=== PATIENT | female | born 1970 | race Two or more races ===

== ENCOUNTER → 2020-03-04 09:33 | Outpatient (BNVA) | payer OTHER, SELFPAY | PROVIDERS: PCP Internal Medicine; Referring Provider Internal Medicine; Visit Provider Physician Assistant | DX: E66.9 Obesity, unspecified (principal); Z68.33 Body mass index [BMI] 33.0-33.9, adult; K90.49 Malabsorption due to intolerance, not elsewhere classified; Z98.84 Bariatric surgery status | CPT/HCPCS: 99214 ==

== ENCOUNTER → 2020-04-15 08:01 | Outpatient (BNVA) | payer OTHER, SELFPAY | PROVIDERS: Visit Provider Dietitian, Registered | DX: Z76.89 Persons encountering health services in other specified circumstances (principal) ==

== ENCOUNTER → 2020-05-13 08:07 | Outpatient (BNVA) | payer OTHER, SELFPAY | PROVIDERS: Visit Provider Dietitian, Registered | DX: Z76.89 Persons encountering health services in other specified circumstances (principal) ==

== ENCOUNTER → 2020-05-19 09:14 | Outpatient (BNVA) | payer OTHER, SELFPAY | PROVIDERS: Visit Provider Physician Assistant | DX: Z76.89 Persons encountering health services in other specified circumstances (principal) ==

== ENCOUNTER 2020-05-20 10:36 | Outpatient (REF) | payer OTHER, SELFPAY ==
[2020-05-27 12:57] LABS: Vitamin A 32 mcg/dL (38-98)
== END 2020-05-20 10:37 | disposition home or self-care (01) ==
LOC: HO.LAB 10:36
PROVIDERS: PCP Internal Medicine; Visit Provider Physician Assistant
DX: K90.49 Malabsorption due to intolerance, not elsewhere classified (principal); Z98.84 Bariatric surgery status
CPT/HCPCS: 84590

== ENCOUNTER 2020-06-10 09:02 | Outpatient (REF) | payer OTHER, SELFPAY ==
--- NOTE | 2020-06-10 09:05 | FL_ITS ---
EXAMINATION: XR GI SERIES CLINICAL INFORMATION: Bariatric surgery status COMPARISON: None TECHNIQUE: Upper GI was performed using thin and thick barium and effervescent granules. FINDINGS: Esophageal motility is normal. There are postoperative changes from a gastric sleeve. No mass ulcer or stricture is seen. There is significant gastroesophageal reflux. There is a small sliding hiatal hernia. The visualized small bowel is normal. FLUOROSCOPY TIME: 1.7 minutes DOSE AREA PRODUCT: 22 Gy-cm2 (microgray-meter squared) 43 images FL/FL upper GI series IMPRESSION: Postoperative change following gastric sleeve. Significant gastroesophageal reflux. Small sliding hiatal hernia.
== END 2020-06-10 09:03 | disposition home or self-care (01) ==
LOC: HO.XRAY 09:02
PROVIDERS: Visit Provider Surgery
DX: K21.9 Gastro-esophageal reflux disease without esophagitis (principal); Z98.84 Bariatric surgery status
CPT/HCPCS: 74240

== ENCOUNTER → 2020-06-16 14:18 | Outpatient (BNVA) | payer OTHER, SELFPAY | PROVIDERS: PCP Internal Medicine; Visit Provider Physician Assistant | DX: E66.9 Obesity, unspecified (principal); K90.49 Malabsorption due to intolerance, not elsewhere classified; Z98.84 Bariatric surgery status | CPT/HCPCS: 99212 ==

== ENCOUNTER → 2020-06-17 08:52 | Outpatient (BNVA) | payer OTHER, SELFPAY | PROVIDERS: PCP Internal Medicine; Visit Provider Dietitian, Registered | DX: Z98.84 Bariatric surgery status (principal); K90.49 Malabsorption due to intolerance, not elsewhere classified; E66.9 Obesity, unspecified; E66.01 Morbid (severe) obesity due to excess calories ==

== ENCOUNTER 2020-07-29 10:12 | Outpatient (REF) | payer OTHER, SELFPAY ==
[2020-07-29 13:04] LABS: MANUAL DIFF FLAG NO
[2020-07-29 13:17] LABS: Eosinophils Absolute Auto 0.1 X10*3/uL (0.0-0.4); Eosinophils Percent Auto 3.8 % (0-4); Hematocrit 43.3 % (37-47); Hemoglobin 14.1 g/dl (12.0-16.0); Lymphocytes Absolute Auto 1.4 X10*3/uL (1.2-4.9); Lymphocytes Percent Auto 46.7 % (20-40); Mean Corpuscular HGB Conc 32.6 g/dl (31.0-35.0); Mean Corpuscular Hemoglobin 31.1 pg (27.0-33.0); Mean Corpuscular Volume 95.4 fL (80-98); Mean Platelet Volume 10.4 fL (9.4-12.3); Monocytes Absolute Auto 0.3 X10*3/uL (0.1-1.2); Monocytes Percent Auto 9.3 % (2-11); Neutrophils Absolute Auto 1.1 X10*3/uL (2.0-8.3); Neutrophils Percent Auto 39.2 % (45-73); Platelet Count 211 X10*3/uL (160-400); Red Blood Count 4.54 X10*6/uL (4.20-5.50); Red Cell Distribution Width 13.8 % (11.0-16.0); White Blood Count 2.9 X10*3/uL (4.8-10.8)
[2020-07-29 14:16] LABS: Estimated Average Glucose 103 mg/dL; Hemoglobin A1c % 5.2 %
[2020-07-29 14:27] LABS: Vitamin B12 1403 pg/mL (200-900)
[2020-07-29 14:41] LABS: Ferritin 8 ng/mL (10-250); TSH reflex Free T4 1.36 uIU/mL (0.32-4.0); Vitamin D 25-OH Total 43.1 ng/mL (>30)
[2020-07-29 14:43] LABS: Alanine Aminotransferase 20 U/L (0-31); Albumin Level 4.3 g/dL (3.5-5.0); Alkaline Phosphatase 54 U/L (39-117); Anion Gap 12 (12-20); Aspartate Amino Transferase 21 U/L (5-31); Bilirubin Total 0.5 mg/dL (0.0-1.0); Blood Urea Nitrogen 12 mg/dL (9-16); Calcium 9.5 mg/dL (8.4-10.2); Carbon Dioxide 31 mmol/L (22-29); Chloride 103 mmol/L (96-108); Cholesterol 205 mg/dL; Estimated Glomerular Filt Rate > 60; Glucose Fasting 81 mg/dL (60-99); HDL Cholesterol 90 mg/dL; Iron 101 mcg/dL (30-160); LDL Cholesterol Calculated 104 mg/dl; Percent Iron Saturation 26 % (15-50); Potassium 4.2 mmol/L (3.3-5.1); Sodium 142 mmol/L (135-145); Total Iron Binding Capacity 392 mcg/dL (228-428); Total Protein 7.6 g/dL (6.5-8.0); Triglycerides 57 mg/dL; Unsaturated Iron Binding 291 ug/dL
[2020-07-30 15:46] LABS: Calcium (PTHI) 9.6 mg/dL (8.6-10.2); PTHI 50 pg/mL (14-64)
[2020-07-31 05:17] LABS: Insulin Level Total 4.2 uIU/mL
[2020-08-01 00:47] LABS: Zinc 80 mcg/dL (60-130)
[2020-08-01 11:56] LABS: Vitamin B1 18 nmol/L (8-30)
[2020-08-04 03:32] LABS: Vitamin A 36 mcg/dL (38-98)
== END 2020-07-29 10:13 | disposition home or self-care (01) ==
LOC: HO.LAB 10:12
PROVIDERS: Absent Provider Physician Assistant; PCP Internal Medicine; Visit Provider Dietitian, Registered
DX: E66.01 Morbid (severe) obesity due to excess calories (principal); K90.49 Malabsorption due to intolerance, not elsewhere classified; Z98.84 Bariatric surgery status
CPT/HCPCS: 36415; 80053; 80061; 82306; 82607; 82728; 82746; 83036; 83525; 83540; 83970; 84425; 84443; 84590; 84630; 85025; 86140

== ENCOUNTER → 2020-10-03 14:20 | Outpatient (BNVA) | payer OTHER, SELFPAY | PROVIDERS: PCP Internal Medicine; Visit Provider Physician Assistant | DX: E66.9 Obesity, unspecified (principal); K90.49 Malabsorption due to intolerance, not elsewhere classified; Z98.84 Bariatric surgery status | CPT/HCPCS: 99212 ==

== ENCOUNTER → 2020-11-27 12:05 | Outpatient (BNVA) | payer OTHER, SELFPAY | PROVIDERS: PCP Internal Medicine; Visit Provider Physician Assistant ==

== ENCOUNTER → 2021-01-08 08:09 | Outpatient (BNVA) | payer OTHER, SELFPAY | PROVIDERS: PCP Internal Medicine; Visit Provider Dietitian, Registered ==

== ENCOUNTER → 2021-02-25 13:39 | Outpatient (BNVA) | payer OTHER, SELFPAY | PROVIDERS: PCP Internal Medicine; Visit Provider Physician Assistant Surgical | DX: E66.9 Obesity, unspecified (principal); Z98.84 Bariatric surgery status | CPT/HCPCS: 99212 ==

== ENCOUNTER 2021-04-01 13:56 | Outpatient (REF) | payer OTHER, SELFPAY ==
[2021-04-01 15:21] LABS: MANUAL DIFF FLAG NO
[2021-04-01 15:42] LABS: Basophils Percent Auto 0.2 % (0-2); Eosinophils Percent Auto 0.6 % (0-4); Hematocrit 38.8 % (37.0-47.0); Hemoglobin 12.8 g/dl (12.0-16.0); Imm Gran Abs Auto 0.01 X10*3/uL (0.00-0.03); Imm Gran Pct Auto 0.2 % (0.0-0.4); Lymphocytes Absolute Auto 1.9 X10*3/uL (1.2-4.9); Mean Corpuscular Hemoglobin 31.1 pg (27.0-33.0); Mean Corpuscular Volume 94.4 fL (80.0-98.0); Mean Platelet Volume 9.6 fL (9.4-12.3); Monocytes Absolute Auto 0.4 X10*3/uL (0.1-1.2); Monocytes Percent Auto 7.4 % (2-11); Neutrophils Absolute Auto 3.1 x10*3/uL (2.0-8.3); Neutrophils Percent Auto 57.6 % (45-73); Platelet Count 260 X10*3/uL (160-400); Red Blood Count 4.11 X10*6/uL (4.20-5.50); Red Cell Distribution Width 13.5 % (11.0-16.0); White Blood Count 5.4 X10*3/uL (4.8-10.8)
[2021-04-01 15:53] LABS: Estimated Average Glucose 100 mg/dL; Hemoglobin A1c % 5.1 %
[2021-04-01 16:11] LABS: Anion Gap 13 (12-20); Blood Urea Nitrogen 18 mg/dL (9-16); C Reactive Protein 0.23 mg/dL (< or = 0.50); Calcium 9.2 mg/dL (8.4-10.2); Carbon Dioxide 28 mmol/L (22-29); Chloride 104 mmol/L (96-108); Cholesterol 190 mg/dL; Estimated Glomerular Filt Rate > 60; Glucose Random 89 mg/dL (60-115); HDL Cholesterol 74 mg/dL; Iron 97 mcg/dL (30-160); LDL Cholesterol Calculated 103 mg/dl; Percent Iron Saturation 26 % (15-50); Potassium 4.1 mmol/L (3.3-5.1); Sodium 141 mmol/L (135-145); Total Iron Binding Capacity 372 mcg/dL (228-428); Triglycerides 67 mg/dL; Unsaturated Iron Binding 275 ug/dL
[2021-04-01 16:32] LABS: Ferritin 10 ng/mL (10-250); TSH reflex Free T4 2.73 uIU/mL (0.32-4.0); Vitamin D 25-OH Total 35.3 ng/mL (>30)
[2021-04-01 16:42] LABS: Folate 15.6 ng/mL (> or = 4.0); Vitamin B12 1046 pg/mL (200-900)
[2021-04-02 15:41] LABS: Calcium (PTHI) 9.2 mg/dL (8.6-10.2); PTHI 80 pg/mL (14-64)
[2021-04-04 14:05] LABS: Zinc 69 mcg/dL (60-130)
[2021-04-05 12:01] LABS: Vitamin B1 16 nmol/L (8-30)
[2021-04-06 09:46] LABS: Vitamin A 42 mcg/dL (38-98)
== END 2021-04-01 13:57 | disposition home or self-care (01) ==
LOC: HO.LAB 13:56
PROVIDERS: PCP Internal Medicine; Visit Provider Physician Assistant Surgical
DX: E66.9 Obesity, unspecified (principal); Z68.35 Body mass index [BMI] 35.0-35.9, adult; K21.9 Gastro-esophageal reflux disease without esophagitis; Z98.84 Bariatric surgery status
CPT/HCPCS: 36415; 80048; 80061; 82306; 82607; 82728; 82746; 83036; 83540; 83970; 84425; 84443; 84590; 84630; 85025; 86140; 99212

== ENCOUNTER 2021-06-16 08:06 | Outpatient (REF) | payer OTHER, SELFPAY ==
--- NOTE | ~2021-06-16 | FL_ITS ---
EXAMINATION: XR FLUOROSCOPY UPPER GI WITH AIR CLINICAL INFORMATION: Preop. Obesity. COMPARISON: Previous upper GI exam 06/10/2020. TECHNIQUE: Routine upper GI air-contrast study was performed. FINDINGS: Following oral administration of thick barium and effervescent granules, there is normal propagation of bolus from the oral cavity through the pharynx and esophagus and into the stomach without obstruction, narrowing or stricture. On placing patient supine and prone lying, there is evidence of gastric sleeve surgery with a small stomach. There is normal emptying of barium from the stomach into the duodenal bulb and the sweep without any evidence of obstruction, narrowing or stricture. There is moderate gastroesophageal reflux with mild sliding hiatal hernia noted. There is a posterior flopped fundus, similar to previous study. FLUOROSCOPY TIME: 2.3 minutes. DOSE AREA PRODUCT: 34.308 uGy-m2 (microgray-meter squared). IMAGES: 49. FL/FL upper GI w air IMPRESSION: Post gastric sleeve surgical changes are present. There is moderate gastroesophageal reflux with sliding hiatal hernia similar to previous study.
== END 2021-06-16 08:07 | disposition home or self-care (01) ==
LOC: HO.XRAY 08:06
PROVIDERS: Visit Provider Physician Assistant Surgical
DX: K21.9 Gastro-esophageal reflux disease without esophagitis (principal); E66.9 Obesity, unspecified
CPT/HCPCS: 74246

== ENCOUNTER → 2021-06-23 07:55 | Outpatient (BNVA) | payer OTHER, SELFPAY | PROVIDERS: PCP Internal Medicine; Referring Provider Surgery; Visit Provider Physician Assistant Surgical | DX: E66.9 Obesity, unspecified (principal); Z68.35 Body mass index [BMI] 35.0-35.9, adult | CPT/HCPCS: 99212 ==

== ENCOUNTER 2021-11-27 10:53 | Outpatient (REF) | payer OTHER, SELFPAY ==
[2021-11-27 11:13] LABS: MANUAL DIFF FLAG NO
[2021-11-27 11:18] LABS: Basophils Percent Auto 0.3 % (0-2); Eosinophils Absolute Auto 0.2 X10*3/uL (0.0-0.4); Eosinophils Percent Auto 4.9 % (0-4); Hematocrit 34.6 % (37.0-47.0); Hemoglobin 11.3 g/dl (12.0-16.0); Imm Gran Abs Auto 0.01 X10*3/uL (0.00-0.03); Imm Gran Pct Auto 0.3 % (0.0-0.4); Lymphocytes Absolute Auto 1.8 X10*3/uL (1.2-4.9); Lymphocytes Percent Auto 45.6 % (20-40); Mean Corpuscular HGB Conc 32.7 g/dl (31.0-35.0); Mean Corpuscular Hemoglobin 30.7 pg (27.0-33.0); Mean Platelet Volume 9.7 fL (9.4-12.3); Monocytes Absolute Auto 0.3 X10*3/uL (0.1-1.2); Monocytes Percent Auto 8.5 % (2-11); Neutrophils Absolute Auto 1.6 x10*3/uL (2.0-8.3); Neutrophils Percent Auto 40.4 % (45-73); Platelet Count 161 X10*3/uL (160-400); Red Blood Count 3.68 X10*6/uL (4.20-5.50); White Blood Count 3.9 X10*3/uL (4.8-10.8)
[2021-11-27 11:27] LABS: Estimated Average Glucose 103 mg/dL; Hemoglobin A1c % 5.2 %
[2021-11-27 11:57] LABS: Anion Gap 9 (12-20); Blood Urea Nitrogen 13 mg/dL (9-16); C Reactive Protein 0.76 mg/dL (< or = 0.50); Calcium 8.7 mg/dL (8.4-10.2); Carbon Dioxide 28 mmol/L (22-29); Chloride 106 mmol/L (96-108); Cholesterol 200 mg/dL; Estimated Glomerular Filt Rate > 60; Glucose Random 89 mg/dL (60-115); HDL Cholesterol 64 mg/dL; Iron 105 mcg/dL (30-160); LDL Cholesterol Calculated 119 mg/dl; Percent Iron Saturation 37 % (15-50); Potassium 3.8 mmol/L (3.3-5.1); Sodium 139 mmol/L (135-145); Total Iron Binding Capacity 286 mcg/dL (228-428); Triglycerides 88 mg/dL; Unsaturated Iron Binding 181 ug/dL
[2021-11-27 12:11] LABS: Ferritin 19 ng/mL (10-250); TSH reflex Free T4 2.33 uIU/mL (0.32-4.0); Vitamin D 25-OH Total 29.3 ng/mL (>30)
[2021-11-27 12:20] LABS: Folate 8.4 ng/mL (> or = 4.0); Vitamin B12 338 pg/mL (200-900)
[2021-11-27 12:42] LABS: Insulin 7 uU/mL (2-29)
[2021-12-01 12:11] LABS: Calcium (PTHI) 8.9 mg/dL (8.6-10.4); PTHI 71 pg/mL (16-77)
[2021-12-01 16:42] LABS: Zinc 60 mcg/dL (60-130)
[2021-12-02 21:22] LABS: Vitamin A 37 mcg/dL (38-98)
[2021-12-04 16:12] LABS: Vitamin B1 14 nmol/L (8-30)
== END 2021-11-27 10:54 | disposition home or self-care (01) ==
LOC: HO.LAB 10:53
PROVIDERS: Visit Provider Physician Assistant Surgical
DX: E66.9 Obesity, unspecified (principal); K90.49 Malabsorption due to intolerance, not elsewhere classified; Z98.84 Bariatric surgery status
CPT/HCPCS: 36415; 80048; 80061; 82306; 82607; 82728; 82746; 83036; 83525; 83540; 83970; 84425; 84443; 84590; 84630; 85025; 86140

== ENCOUNTER → 2021-12-10 10:11 | Outpatient (BNVA) | payer OTHER, SELFPAY | PROVIDERS: PCP Internal Medicine; Visit Provider Physician Assistant Surgical | DX: E66.9 Obesity, unspecified (principal); Z98.84 Bariatric surgery status; Z68.35 Body mass index [BMI] 35.0-35.9, adult | CPT/HCPCS: 99212 ==

== ENCOUNTER → 2022-03-17 11:01 | Outpatient (BNVA) | payer OTHER, SELFPAY | PROVIDERS: PCP Internal Medicine; Visit Provider Physician Assistant Surgical | DX: E66.9 Obesity, unspecified (principal); Z68.34 Body mass index [BMI] 34.0-34.9, adult; L98.7 Excessive and redundant skin and subcutaneous tissue; Z98.84 Bariatric surgery status | CPT/HCPCS: 99212 ==

== ENCOUNTER 2022-05-25 13:19 | Outpatient (REF) | payer OTHER, SELFPAY ==
[2022-05-25 14:24] LABS: MANUAL DIFF FLAG NO
[2022-05-25 15:05] LABS: Basophils Percent Auto 0.5 % (0-2); Eosinophils Percent Auto 0.7 % (0-4); Hematocrit 37.1 % (37.0-47.0); Imm Gran Abs Auto 0.03 X10*3/uL (0.00-0.03); Imm Gran Pct Auto 0.5 % (0.0-0.4); Lymphocytes Percent Auto 32.5 % (20-40); Mean Corpuscular HGB Conc 32.3 g/dl (31.0-35.0); Mean Corpuscular Hemoglobin 30.2 pg (27.0-33.0); Mean Corpuscular Volume 93.5 fL (80.0-98.0); Monocytes Absolute Auto 0.6 X10*3/uL (0.1-1.2); Neutrophils Absolute Auto 3.5 x10*3/uL (2.0-8.3); Neutrophils Percent Auto 56.8 % (45-73); Platelet Count 254 X10*3/uL (160-400); Red Blood Count 3.97 X10*6/uL (4.20-5.50); White Blood Count 6.1 X10*3/uL (4.8-10.8)
[2022-05-25 15:50] LABS: Alanine Aminotransferase 13 U/L (0-31); Alkaline Phosphatase 63 U/L (39-117); Anion Gap 8 (12-20); Aspartate Amino Transferase 14 U/L (5-31); Bilirubin Total 0.6 mg/dL (0.0-1.0); Blood Urea Nitrogen 12 mg/dL (9-16); Calcium 9.1 mg/dL (8.4-10.2); Carbon Dioxide 32 mmol/L (22-29); Chloride 103 mmol/L (96-108); Estimated Glomerular Filt Rate > 60; Glucose Random 72 mg/dL (60-115); Iron 139 mcg/dL (30-160); Magnesium 2.2 mg/dL (1.6-2.6); Percent Iron Saturation 40 % (15-50); Phosphorus 3.7 mg/dL (2.7-4.5); Potassium 3.9 mmol/L (3.3-5.1); Sodium 139 mmol/L (135-145); Total Iron Binding Capacity 344 mcg/dL (228-428); Unsaturated Iron Binding 205 ug/dL
[2022-05-25 16:06] LABS: Ferritin 7 ng/mL (10-250); TSH reflex Free T4 2.97 uIU/mL (0.32-4.0); Vitamin D 25-OH Total 27.3 ng/mL (>30)
[2022-05-25 16:24] LABS: Folate 11.9 ng/mL (> or = 4.0); Vitamin B12 359 pg/mL (200-900)
[2022-05-28 05:23] LABS: Zinc 76 mcg/dL (60-130)
[2022-05-30 10:13] LABS: Vitamin A 40 mcg/dL (38-98); Vitamin B1 17 nmol/L (8-30)
== END 2022-05-25 13:20 | disposition home or self-care (01) ==
LOC: HO.LAB 13:19
PROVIDERS: PCP Internal Medicine; Visit Provider Physician Assistant Surgical
DX: E66.9 Obesity, unspecified (principal); L98.7 Excessive and redundant skin and subcutaneous tissue; Z98.84 Bariatric surgery status
CPT/HCPCS: 36415; 80053; 82306; 82607; 82728; 82746; 83540; 83735; 84100; 84425; 84443; 84590; 84630; 85025; 99212

== ENCOUNTER → 2022-09-13 13:37 | Outpatient (BNVA) | payer OTHER, SELFPAY | PROVIDERS: PCP Internal Medicine; Visit Provider Physician Assistant Surgical | DX: E66.9 Obesity, unspecified (principal); Z68.35 Body mass index [BMI] 35.0-35.9, adult | CPT/HCPCS: 99212 ==

== ENCOUNTER 2023-01-25 11:45 | Outpatient (AMB) | payer OTHER, SELFPAY ==
--- NOTE | 2023-01-25 11:51 | MHC.OFFVISWM ---
Intake VS Expanded 01/25/23 12:06 Height 5 ft 8 in Weight 237 lb 9.6 oz BMI 36.1 BP 118/64 Blood Pressure Location Rt brachial Blood Pressure Position Sitting Pulse 73 Pulse Source Pulse Oximeter Temp 97.0 F Temperature Source Tympanic Pulse Oximetry 97 Oxygen Delivery Method Room Air Body Fat 95.2 Body Fat Percentage 40.1 Free Fat Mass 142.2 Muscle Mass 135.2 Visceral Mass 11.0 Water Mass 101.2 BMR 1,960 Intake Visit Reasons: (OV) PO LSG 01/24/18 Allergies SEAFOOD Allergy (Intermediate, Uncoded 01/25/23 12:08) HIVES,THROAT SWELLING seafood Allergy (Unknown, Uncoded 01/25/23 12:08) itching Medication List - Last Reconciled 01/25/23 by BERONICA Jiemnez albuterol sulfate 2.5 mg inhalation Q8H PRN calcium carbonate 200 mg PO BID calcium carbonate-vitamin D3 500 mg-10 mcg (400 unit) (Calcium 500 + D) 1 tab PO BID cholecalciferol (vitamin D3) 125 mcg PO DAILY clotrimazole 1% 1 appl topical BID fexofenadine (An Allergy) 60 mg PO BID gabapentin 400 mg PO 2 times a day; inulin 2 grams PO DAILY loratadine 10 mg PO DAILY multivitamin with iron-mineral 1 tab PO DAILY ondansetron 4 mg PO Q8H PRN pantoprazole 40 mg PO DAILY vitamin A 1 cap PO DAILY HPI HPI Comments History of Present Illness Details This?is a?52?yo female who is s/p LSG 01/23/2018. Presents for 5 year post op visit. Weight at last visit on 09/13/2022 was 231.6 pounds with a BMI of 35.2, weight today is 237.6 pounds, representing a 6 pound weight gain with a BMI today of 36.1.? No complaints of nausea, emesis, abdominal pain or reflux, or constipation. Present meal plan includes: 90g/day protein goal, suggested the followin-11am Premier shake with 2 scoops 1-2pm lunch with 3oz protein, 3oz veg/salad 4pm Faroese yogurt 7-9pm another shake pt reports sometimes she doesn't eat and has not been consistent with plan Exercise: Tries to do cardio or pool workouts at the gym- 200+ calories in 30 min still has knee pain Continues to get rashes of excess skin of abdomen and upper thighs. Has to wear compressive garments of abdomen and thighs (spandex shorts) to prevent chafing. Reports clotrimazole cream has helped somewhat.?? Did the patient ever have any of these conditions and are they resolved or still being treated? GERD: pantoprazole QASIM:? never DM:? never HTN:? never Hyperlipidemia:? never Post op complications:? none Heartburn symptoms Score 0-5: 0=no symptoms, 1=noticeable but not bothersome (slight or occasional), 2=noticeable, bothersome but not daily, 3=bothersome and daily, 4=affects daily activities, 5=incapacitating, unable to do daily activities How bad is the heartburn: 0 Heartburn when lying down: 0 Heartburn when standing up: 0 Heartburn after meals: 0 Does heartburn change your diet: 0 Does heartburn wake you up from sleep: 0 Do you have difficulty swallowin Do you have pain with swallowin If you take medication for reflux, does this affect your daily life: 0 Total score: 5 PFSH Medical History Arthritis Asthma Bursitis Carpal tunnel syndrome IBS (irritable bowel syndrome) Liver problem Malabsorption due to intolerance, not elsewhere classified Morbid obesity Morbid obesity with BMI of 40.0-44.9, adult Obesity (BMI 30.0-34.9) Seasonal allergies Surgical History H/O tubal ligation History of adjustable gastric banding S/P laparoscopic sleeve gastrectomy Family History Father No problems noted. Mother Leukemia Son No problems noted. Daughter No problems noted. Daughter No problems noted. Sister No problems noted. Social History Alcohol intake: never Patient Tobacco Use Status: Never used Tobacco Physical Exam Const General: cooperative, comfortable and no acute distress Orientation/consciousness: patient oriented x3 GI Other: soft, nontender, nondistended, incisions well healed, no hernia, no masses Neuro General: patient oriented x3 Assessment & Plan Assessment & Plan (1) Excess skin: Code(s): L98.7 - Excessive and redundant skin and subcutaneous tissue (2) Obesity (BMI 35.0-39.9 without comorbidity): Code(s): E66.9 - Obesity, unspecified (3) S/P laparoscopic sleeve gastrectomy: Comment: 01/24/18 Code(s): Z98.84 - Bariatric surgery status Plan Gave pt goal weight of <190lbs in order to qualify for panniculectomy. Emphasized adequate protein intake to help facilitate weight loss. Suggested 2 shakes, small meal, and yogurt/bar for a snack; or if she is not hungry/does not feel like eating can have 3 shakes. She would like to try Ensure premade shakes. Clotrimazole ointment refilled. Due for labs in May. Seeing as pt is now 5 years postop without any surgical complications I suggested meeting with RD to help with meal plan until pt gets closer to goal weight; then can schedule another appt with me to further discuss skin removal surgery. Patient is obese and is not considered stable at this time. I spent a total of 30 minutes reviewing/updating records, examining the patient and counseling the patient on weight management as detailed above. Medications: Refilled clotrimazole 1% 1 appl topical BID 45 grams 3RF pantoprazole 40 mg PO DAILY 30 tabs 5RF calcium carbonate-vitamin D3 500 mg-10 mcg (400 unit) (Calcium 500 + D) stop other calcium and Vit D 1 tab PO BID 60 tabs 6RF Coding Level of Care Code Est Pt Level 4 (43012) Diagnoses Excess skin L98.7 Obesity (BMI 35.0-39.9 without comorbidity) E66.9 S/P laparoscopic sleeve gastrectomy Z98.84
[2023-01-25 12:06] VITALS: BP 118/64; PULSE 73; TEMP 36.1; O2SAT 97; BMI 36.1
== END 2023-01-25 12:31 | disposition home or self-care (01) ==
PROVIDERS: PCP Internal Medicine; Visit Provider Physician Assistant Surgical
DX: E66.9 Obesity, unspecified (principal); Z68.36 Body mass index [BMI] 36.0-36.9, adult; Z90.3 Acquired absence of stomach [part of]; Z98.84 Bariatric surgery status; L98.7 Excessive and redundant skin and subcutaneous tissue
CPT/HCPCS: 99214

== ENCOUNTER → 2023-01-25 11:45 | Outpatient (BNVA) | payer OTHER, SELFPAY | PROVIDERS: PCP Internal Medicine; Visit Provider Physician Assistant Surgical | DX: E66.9 Obesity, unspecified (principal); L98.7 Excessive and redundant skin and subcutaneous tissue; Z98.84 Bariatric surgery status; Z68.36 Body mass index [BMI] 36.0-36.9, adult | CPT/HCPCS: 99212 ==

== ENCOUNTER → 2023-03-22 09:38 | Outpatient (BNVA) | payer OTHER, SELFPAY | PROVIDERS: PCP Internal Medicine; Visit Provider Dietitian, Registered | DX: E66.9 Obesity, unspecified (principal); Z68.36 Body mass index [BMI] 36.0-36.9, adult | CPT/HCPCS: 97803 ==

== ENCOUNTER 2024-03-07 10:40 | Outpatient (AMB) | payer MEDICARE, MEDICAID, SELFPAY ==
--- NOTE | 2024-03-07 10:32 | MHC.OFFVISWM ---
VS Expanded 03/07/24 10:40 Height 5 ft 8 in Weight 242 lb BMI 36.8 Intake Visit Reasons: (TV) PO LSG 01/24/18 Allergies SEAFOOD Allergy (Intermediate, Uncoded 01/25/23 12:08) HIVES,THROAT SWELLING seafood Allergy (Unknown, Uncoded 01/25/23 12:08) itching Medication List - Last Reconciled 03/07/24 by BERONICA Jimenez albuterol sulfate 2.5 mg inhalation Q8H PRN calcium carbonate 200 mg PO BID calcium carbonate-vitamin D3 500 mg-10 mcg (400 unit) (Calcium 500 + D) 1 tab PO BID cholecalciferol (vitamin D3) 125 mcg PO DAILY clotrimazole 1% 1 appl topical BID fexofenadine (An Allergy) 60 mg PO BID gabapentin 400 mg PO 2 times a day; inulin 2 grams PO DAILY loratadine 10 mg PO DAILY multivitamin with iron-mineral 1 tab PO DAILY ondansetron 4 mg PO Q8H PRN pantoprazole 40 mg PO DAILY pantoprazole 40 mg PO DAILY vitamin A 1 cap PO DAILY HPI Comments Details: This?is a?53?yo female who is s/p LSG 01/24/2018. Presents for 6 year post op visit. Weight at last visit on 03/22/2023 was 243 pounds with a BMI of 36.9, weight today is 242 pounds, representing a 1 pound weight loss with a BMI today of 36.8.? No complaints of nausea, emesis, abdominal pain, or constipation. Has reflux, controlled by PPI. Present meal plan includes: tea with masood, little bit of cream, no sugar skips lunch, may have a yogurt sometimes or tea dinner- meat with plantain or pasta likes Premier or Fairlife shakes Exercise: one day per week walking. has a gym membership as well which has a pool. she enjoys swimming still has knee pain- water on my knee , gets cortisone injection several times a year [facility] Medical History Arthritis Asthma Bursitis Carpal tunnel syndrome IBS (irritable bowel syndrome) Liver problem Malabsorption due to intolerance, not elsewhere classified Morbid obesity Morbid obesity with BMI of 40.0-44.9, adult Obesity (BMI 30.0-34.9) Seasonal allergies Surgical History H/O tubal ligation History of adjustable gastric banding S/P laparoscopic sleeve gastrectomy Family History Father No problems noted. Mother Leukemia Son No problems noted. Daughter No problems noted. Daughter No problems noted. Sister No problems noted. Social History Alcohol intake: never Patient Tobacco Use Status: Never used Tobacco Telehealth Telehealth Telehealth Platform: Telephone Location of provider rendering services: other Location of patient: address on file Patient Identification confirmed using: Name, : Yes Telehealth method: voice only Patient verbally consented to treatment: Yes Patient verbally consented to billing insurance company: Yes Patient informed of any privacy concerns related to visit: Yes Minutes spent on Phone/Video with Pt.: 16 Assessment & Plan Assessment & Plan (1) S/P laparoscopic sleeve gastrectomy: Comment: 01/24/18 Code(s): Z98.84 - Bariatric surgery status Category: Surgical (2) Obesity (BMI 30.0-34.9): Code(s): E66.9 - Obesity, unspecified Category: Medical Plan New high protein meal plan- 2 shakes per day, Fairlife or Premier 9am and 6pm 1 burkinan yogurt 1pm 1 meal 4f/4f 4pm Labs ordered RTC 3 months for phone call visit for accountability, pt reports she will text me weekly with weight measurements to stay on track. I spent a total of 30 minutes reviewing/updating records, examining the patient and counseling the patient on weight management as detailed above. Orders: Orders Complete Blood Count Auto Diff Today Z98.84 - Bariatric surgery status IRON PROFILE Today Z98.84 - Bariatric surgery status Vitamin B12 and Folate Today Z98.84 - Bariatric surgery status Zinc Today Z98.84 - Bariatric surgery status C Reactive Protein Today Z98.84 - Bariatric surgery status Ferritin Today Z98.84 - Bariatric surgery status Insulin Today Z98.84 - Bariatric surgery status Hemoglobin A1c Today Z98.84 - Bariatric surgery status Lipid Panel Today Z98.84 - Bariatric surgery status Comprehensive Met. Panel Today Z98.84 - Bariatric surgery status Vitamin B1 Today Z98.84 - Bariatric surgery status Vitamin A Today Z98.84 - Bariatric surgery status TSH reflex Free T4 Today Z98.84 - Bariatric surgery status Vitamin D 25-OH Total Today Z98.84 - Bariatric surgery status
[2024-03-07 10:40] VITALS: BMI 36.8
== END 2024-03-07 10:52 | disposition home or self-care (01) ==
LOC: HO.HBS 10:40
PROVIDERS: PCP Internal Medicine; Visit Provider Physician Assistant Surgical
DX: E66.812 Obesity, class 2 (principal); Z68.36 Body mass index [BMI] 36.0-36.9, adult; Z90.3 Acquired absence of stomach [part of]; Z98.84 Bariatric surgery status
CPT/HCPCS: 98967

== ENCOUNTER → 2024-03-07 10:40 | Outpatient (BNVA) | payer MEDICARE, MEDICAID, SELFPAY | PROVIDERS: PCP Internal Medicine; Visit Provider Physician Assistant Surgical ==

== ENCOUNTER 2024-03-30 11:57 | Outpatient (REF) | payer MEDICARE, MEDICAID, SELFPAY ==
[2024-03-30 12:36] LABS: Basophils Percent Auto 0.6 % (0-2); Eosinophils Absolute Auto 0.2 X10*3/uL (0.0-0.4); Eosinophils Percent Auto 6.9 % (0-4); Hematocrit 36.6 % (37.0-47.0); Imm Gran Abs Auto 0.01 X10*3/uL (0.00-0.03); Imm Gran Pct Auto 0.3 % (0.0-0.4); Lymphocytes Absolute Auto 1.7 X10*3/uL (1.2-4.9); MANUAL DIFF FLAG NO; Mean Corpuscular HGB Conc 32.8 g/dl (31.0-35.0); Mean Corpuscular Hemoglobin 29.8 pg (27.0-33.0); Mean Corpuscular Volume 90.8 fL (80.0-98.0); Monocytes Absolute Auto 0.3 X10*3/uL (0.1-1.2); Monocytes Percent Auto 8.8 % (2-11); Neutrophils Percent Auto 31.4 % (45-73); Platelet Count 211 X10*3/uL (160-400); Red Blood Count 4.03 X10*6/uL (4.20-5.50); Red Cell Distribution Width 14.2 % (11.0-16.0); White Blood Count 3.3 X10*3/uL (4.8-10.8)
[2024-03-30 13:15] LABS: Estimated Average Glucose 108 mg/dL; Hemoglobin A1C 115.0198 umol/L; Hemoglobin A1c % 5.4 % (<6.0); Total Hemoglobin (HGBA1C) 3229.8178 umol/L
[2024-03-30 13:29] LABS: Alanine Aminotransferase 16 U/L (0-31); Albumin Level 3.9 g/dL (3.5-5.0); Alkaline Phosphatase 55 U/L (39-117); Anion Gap 12 (12-20); Aspartate Amino Transferase 22 U/L (5-31); Bilirubin Total 0.6 mg/dL (0.0-1.0); Blood Urea Nitrogen 11 mg/dL (9-16); C Reactive Protein 0.42 mg/dL (< or = 0.50); Calcium 9.3 mg/dL (8.4-10.2); Carbon Dioxide 28 mmol/L (22-29); Chloride 106 mmol/L (96-108); Cholesterol 187 mg/dL (<200); Estimated Glomerular Filt Rate > 60; Glucose Random 86 mg/dL (60-115); HDL Cholesterol 77 mg/dL (>40); Iron 143 mcg/dL (30-160); LDL Cholesterol Calculated 99 mg/dL (<100); Percent Iron Saturation 44 % (15-50); Sodium 142 mmol/L (135-145); Total Iron Binding Capacity 322 mcg/dL (228-428); Triglycerides 55 mg/dL (<150); Unsaturated Iron Binding 179 ug/dL
[2024-03-30 14:32] LABS: Ferritin 8 ng/mL (10-250); Insulin 4 uU/mL (2-29); Vitamin D 25-OH Total 44.3 ng/mL (>30)
[2024-03-30 14:33] LABS: Vitamin B12 1594 pg/mL (200-900)
[2024-04-03 12:54] LABS: Zinc 128 mcg/dL (60-130)
[2024-04-04 23:18] LABS: Vitamin A 35 mcg/dL (38-98)
[2024-04-06 16:03] LABS: Vitamin B1 16 nmol/L (8-30)
== END 2024-03-30 11:58 | disposition home or self-care (01) ==
LOC: HO.LAB 11:57
PROVIDERS: Visit Provider Physician Assistant Surgical
DX: Z98.84 Bariatric surgery status (principal); Z13.1 Encounter for screening for diabetes mellitus
CPT/HCPCS: 36415; 80053; 80061; 82306; 82607; 82728; 82746; 83036; 83525; 83540; 84425; 84443; 84590; 84630; 85025; 86140

== ENCOUNTER 2024-07-30 09:47 | Outpatient (AMB) | payer MEDICARE, MEDICAID, SELFPAY ==
--- NOTE | 2024-07-30 09:42 | A.OFFVIS_ITS ---
Intake Visit Reasons: PO LSG 01/24/18 Allergies SEAFOOD Allergy (Intermediate, Uncoded 01/25/23 12:08) HIVES,THROAT SWELLING seafood Allergy (Unknown, Uncoded 01/25/23 12:08) itching Medication List - Last Reconciled 07/30/24 by BERONICA Jimenez albuterol sulfate 2.5 mg inhalation Q8H PRN calcium carbonate 200 mg PO BID calcium carbonate-vitamin D3 500 mg-10 mcg (400 unit) (Calcium 500 + D) 1 tab PO BID cholecalciferol (vitamin D3) 125 mcg PO DAILY clotrimazole 1% 1 appl topical BID fexofenadine (An Allergy) 60 mg PO BID gabapentin 400 mg PO 2 times a day; inulin 2 grams PO DAILY loratadine 10 mg PO DAILY multivitamin with iron-mineral 1 tab PO DAILY ondansetron 4 mg PO Q8H PRN pantoprazole 40 mg PO DAILY pantoprazole 40 mg PO DAILY tirzepatide (weight loss) (Zepbound) 2.5 mg (0.5 mL) subcut QWEEK vitamin A 1 cap PO DAILY HPI Comments Details: This?is a?53?yo female who is s/p LSG 01/24/2018. Presents for 6.5 year post op visit. Weight at last visit on 03/07/2024 was 242 pounds with a BMI of 36.8, weight today is about the same.? No complaints of nausea, emesis, abdominal pain or reflux, or constipation. Struggling with weight loss. Says she is trying to follow meal plan and exercise but weight is not changing. Present meal plan includes: 2 shakes per day, Fairlife or Premier 9am and 6pm 1 ukrainian yogurt 1pm 1 meal 4f/4f 4pm -given at last visit Exercise routine includes: one day per week walking. has a gym membership as well which has a pool. she enjoys swimming limited by knee pain, also reports arthritis in hands/swelling [facility] Medical History Arthritis Asthma Bursitis Carpal tunnel syndrome IBS (irritable bowel syndrome) Liver problem Malabsorption due to intolerance, not elsewhere classified Morbid obesity Morbid obesity with BMI of 40.0-44.9, adult Obesity (BMI 30.0-34.9) Seasonal allergies Surgical History H/O tubal ligation History of adjustable gastric banding S/P laparoscopic sleeve gastrectomy Family History Father No problems noted. Mother Leukemia Son No problems noted. Daughter No problems noted. Daughter No problems noted. Sister No problems noted. Social History Alcohol intake: never Patient Tobacco Use Status: Never used Tobacco Telehealth Telehealth Telehealth Platform: Telephone Location of provider rendering services: other Location of patient: address on file Patient Identification confirmed using: Name, : Yes Telehealth method: voice only Patient verbally consented to treatment: Yes Patient verbally consented to billing insurance company: Yes Patient informed of any privacy concerns related to visit: Yes Minutes spent on Phone/Video with Pt.: 16 Assessment & Plan Assessment & Plan (1) Obesity (BMI 35.0-39.9 without comorbidity): Code(s): E66.9 - Obesity, unspecified Category: Medical (2) S/P laparoscopic sleeve gastrectomy: Comment: 01/24/18 Code(s): Z98.84 - Bariatric surgery status Category: Surgical Plan Pt is interested in starting GLP1. Reviewed contraindications, discussed dosing. Discussed need for adequate protein intake while on GLP1s as well as frequent communication with our office. Pt will check in with me weekly and is aware that subsequent Rx will be dependent on frequent communication. Sent Rx for zepbound. RTC 3mo. Medications: New tirzepatide (weight loss) (Zepbound) for 4 weeks 2.5 mg (0.5 mL) subcut QWEEK 2 mL 0RF
--- OUTSIDE RECORDS SUMMARY | 2024-07-30 10:40 | XMS_ITS | Clinical Summary ---
Author Organization [facility] Address [address] [place] [address] Phone Care Team Providers Care Drafter Engineering Name Role Phone Mitra Gutierrez MD Primary Care Provider [phone] Allergies Active Allergy Reactions Criticality Noted Date Comments Shellfish Containing Products Anaphylaxis High 08/19 Medications gabapentin (NEURONTIN) 400 mg capsule Take 1 capsule (400 mg total) by mouth 2 (two) times a day. 03/28/2024 Active pantoprazole (PROTONIX) 40 mg EC tablet Take 1 tablet (40 mg total) by mouth 1 (one) time each day. Active loratadine (CLARITIN) 10 mg tablet Take 1 tablet (10 mg total) by mouth 1 (one) time each day. 03/23/2024 Active vitamin A 3,000 mcg (10,000 unit) capsule Take 1 capsule (10,000 Units total) by mouth 1 (one) time each day. 03/28/2024 Active cyanocobalamin (VITAMIN B-12) 1,000 mcg tablet Take 1 tablet (1,000 mcg total) by mouth 1 (one) time each day. 03/28/2024 Active Vitamin D3 25 mcg (1,000 unit) capsule Take 1 capsule (1,000 Units total) by mouth 1 (one) time each day. 03/28/2024 Active Active Problems No known active problems Surgical History Surgery Date Site/Laterality Comments TUBAL LIGATION PROCEDURE: HISTORICAL TUBAL LIGATION LAPAROSCOPIC GASTRIC BANDING PROCEDURE: LAP ADJUSTABLE GASTRIC BAND; COMMENT: and removal Medical History Medical History Date Comments Dizziness and giddiness 05/31/2005 DX:Dizzi ness and giddiness Esophageal reflux DX:Esophageal reflux; COMMENT: inflammation of intestines Heart disease, unspecified DX:He art disease, unspecified; COMMENT: bradycardia Other specified personal his tory presenting hazards to health(V15.89) 06/23/2001 DX:Other specifie d personal history presenting hazards to health(V15.89); COMMENT: ca insitu cervix/cone bx Osteoarthritis DX:Osteoarthriti s; COMMENT: knees Obesity DX:Obesity Family History Medical History Relation Name Comments Other: hit by car Father Colon cancer Maternal Grandfather Leukemia Mother due to chemical exposure Blindness Other paternal great grandfather Other: heart disease Paternal Grandfather Breast cancer Neg Hx Cataracts Neg Hx Glaucoma Neg Hx Macular degeneration Neg Hx Strabismus Neg Hx Relation Name Status Comments Father Maternal Grandfather Maternal Grandmother Mother Other Paternal Grandfather Paternal Grandmother Social History Tobacco Use Types Packs/Day Years Used Date Smoking Tobacco: Never Smokeless Tobacco: Never Alcohol Use Standard Drinks/Week Comments No 0 (1 standard drink = 0.6 oz pur e alcohol) Comments Unknown Sex and Gender Information Value Date Recorded Sex Assigned at Not on file Legal Sex Female 11:38 AM EST Gender Identity Not on file Sexual Orientation Not on file Obstetrics History Last Filed Vital Signs Vital Sign Reading Time Taken Comments Blood Pressure 124/66 04/06/2024 11:22 AM EST Pulse 55 04/06/2024 11:22 AM EST Temperature 36.7 ??C (98.1 ??F) 04/06/2024 11:[address] Respiratory Rate 18 04/06/2024 11:22 AM EST Oxygen Saturation 100% 04/06/2024 11:22 AM EST Inhaled Oxygen Concentration - - Weight 109 kg (241 lb) 04/05/2024 8:01 PM EST Height 172.7 cm (5' 8 ) 04/05/2024 8:01 PM EST Body Mass Index 36.64 04/05/2024 8:01 PM EST Plan of Treatment Health Maintenance Due Date Last Done Comments Pneumococcal Vaccine: 50+ Years (2 of 2 - PCV) 09/16/2021 03/21/2010 Zoster Vaccines (1 of 2) 09/16/2021 DTaP,Tdap,and Td Vaccines (3 - Td or Tdap) 09/22/2021 09/23/2011, 06/20/2002 Breast Cancer Screening 12/19/2021 12/20/2019, 08/30 Cholesterol Screening (Lipid Panel) 04/20/2022 Colorectal Cancer Screening: Colonoscopy 04/20/2022 Depression Screening 04/20/2022 HIV Screening 04/20/2022 Hepatitis C Screening 04/20/2022 Medicare Annual Wellness Visit 04/20/2022 Social Influencers of Health Screening 04/20/2022 COVID-19 Vaccine ( season) 2024 08/22/2020, 08/01/2020 Influenza Vaccine (#1) 2024 7, 04/13/2016, 03/07/2015, Additional history exists Cervical Cancer Screening: Pap Smear 06/10/2024 06/10/2021 Hepatitis B Vaccines Completed 07/01/2003, 01/04/2003, 12/04/2002 Pneumococcal Vaccine: Pediatrics (0 to 5 Years) and At-Risk Patients (6 to 64 Years) Aged Out 03/21/2010 No longer eligible based on patient's age to complete this topic HIB Vaccines Aged Out No longer eligi ble based on patient's age to complete this topic HPV Vaccines Aged Out No longer eligi ble based on patient's age to complete this topic Hepatitis A Vaccines Aged Out No long er eligible based on patient's age to complete this topic IPV Vaccines Aged Out No longer eligi ble based on patient's age to complete this topic MMR Vaccines Aged Out No longer eligi ble based on patient's age to complete this topic Meningococcal ACWY Vaccine Aged Out N o longer eligible based on patient's age to complete this topic Meningococcal B Vacine Aged Out No lo nger eligible based on patient's age to complete this topic RSV Immunization Patients Under 20 months Aged Out No longer eligible based on patient's age to complete this topic Varicella Vaccines Aged Out No longer eligible based on patient's age to complete this topic Procedures Procedure Name Priority Date/Time Associated Diagnosis Comments PAP SMEAR Routine 06/10/2021 WANDY SCREENING DIGITAL Routine 12/20/2019 5:46 PM EDT Encounter for screening mammogram for malignant neoplasm of breast from Last 3 Months or Most Recently Relevant to Health Maintenance Results * Pap smear (06/10/2021) 06/10/2021 Narrative HISTORICAL TESTING LAB RESULTING AGENCY - 06/29/2021 8:20 AM EST [id number] THINPREP PAP, IMAGED: NEGATIVE FOR SQUAMOUS INTRAEPITHELIAL LESION AND MALIGNANCY . NOTE: THE PAP TEST IS A SCREENING TEST WITH AN INHERENT FALSE NEGATIVE RATE. AUTOMATED PRESCREENING OF ALL LIQUID BASED SPECIMENS IS PERFORMED BY THE THINPREP IMAGING SYSTEM UNLESS OTHERWISE STATED. DOUG LANDIN(ASCP) (CASE ELECTRONICALLY SIGNED 06 26 2021) RESULT OF APTIMA HIGH RISK HPV ASSAY: HIGH RISK HPV: ??NEGATIVE (SEROTYPES 16,18,31,33,35,39,45,51,52,56,58,59,66,68) COMPLETED ON 2021-06-15 ADEQUACY: SATISFACTORY ENDOCERVICAL/TRANSFORMATION ZONE COMPONENT ABSENT. SOURCE: THINPREP PAP HPV ANY DX: ??REFLEX 16 AND 18, CERVICAL, IMAGED CLINICAL INFORMATION: HPV ANY DIAGNOSIS. HORMONES, PAP HX NEG, Z12.4 us Eliz [facility]AV[facility] LAB CYTOLOGY ORDERABLES Felecia green Result HISTORICAL TESTING LAB RESULTING AGENCY * WANDY SCREENING DIGITAL (12/20/2019 5:46 PM EDT) Anatomical Region Laterality Modality Mammography 12/17/2019 10:5 9 AM EDT Narrative 12/20/2019 5:46 PM EDT [facility] Diagnostic Imaging Department [address] [place] [address] Patient: ??CARI ELIAS ?/Age/Sex: 1970 - 49 - F Unit#: ??[id number] ? Location/Status: ??SPDIMAM/REG CLI ? Mnemonic/Ordering Site: ??DIGSC/SPMAM Ordering Physician: ??MITRA GUTIERREZ MD Wandy Screening Digital - 12/17/19 - 1117 EXAM: [facility] Screening Digital EXAM DATE AND TIME: 12/17/2019 11:18 AM HISTORY: ??Screening. COMPARISON: ??08/30/18, 06/22/16, 12/03/14 ([facility], [place], [place]) TECHNIQUE: CC and MLO views of both breasts were obtained using full field digital mammography. Bilateral digital breast tomosynthesis was performed in the MLO projection. Computer aided detection with the [employer] 7.2-H was employed. TISSUE DENSITY: b. There are scattered areas of fibroglandular density. FINDINGS: No suspicious masses, grouped microcalcifications, or areas of architectural distortion are seen. Vascular calcification is present. The skin is unremarkable. IMPRESSION: Stable mammographic appearance of the breasts. ??No evidence of malignancy is seen. A negative mammogram in the presence of a clinically suspicious palpable abnormality does not preclude the possibility of malignancy or alter the indications for biopsy. BI-RADS: ??Category 2: Benign RECOMMENDATION(S): 1: Routine screening mammogram BILATERAL in 1 year. 10267, 55866 3342F, 7025F Dictating Physician: ??AMY GUERRERO MD Electronically Signed by: ??AMY GUERRERO MD Dic Date/Time: ??12/20/191745 Sign date/Time: ??12/20/191745 Procedure Note Amy Guerrero MD - 05/12/2022 [facility] Diagnostic Imaging Department [address] [place] [address] Patient: JAILENECARI BENEDICTO.B./Age/Sex: 1970 - 49 - F Unit#: [id number] Location/Status: SPDIMAM/REG CLI Mnemonic/Ordering Site: [facility] Ordering Physician: MITRA GUTIERREZ MD [facility] Screening Digital - 12/17/19 - 1117 EXAM: [facility] Screening Digital EXAM DATE AND TIME: 12/17/2019 11:18 AM HISTORY: Screening. COMPARISON: 08/30/18, 06/22/16, 12/03/14 ([facility], [place], [place]) TECHNIQUE: CC and MLO views of both breasts were obtained using fullfield digital mammography. Bilateral digital breast tomosynthesis was performedin the MLO projection. 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 TISSUE DENSITY: b. There are scattered areas of fibroglandular density. FINDINGS: No suspicious masses, grouped microcalcifications, or areas ofarchitectural distortion are seen. Vascular calcification is present. The skin is unremarkable. IMPRESSION: Stable mammographic appearance of the breasts. No evidence of malignancyis seen. A negative mammogram in the presence of a clinically suspicious palpable abnormality does not preclude the possibility of malignancy or alter the indications for biopsy. BI-RADS: Category 2: Benign RECOMMENDATION(S): 1: Routine screening mammogram BILATERAL in 1 year. 39655, 08579 3342F, 7025F Dictating Physician: AMY GUERRERO MD Electronically Signed by: AMY GUERRERO MD Dic Date/Time: 12/20/191745 Sign date/Time: 12/20/191745 Mitra Gutierrez MD IM BI PROCEDURES Final Result from Last 3 Months or Most Recently Relevant to Health Maintenance Insurance MEDICA[place] - [place] MEDICARE Care Teams Drafter Engineering Relationship Specialty Start Date End Date Mitra Gutierrez MD PCP - General Internal Medicine 03/30/14
--- OUTSIDE RECORDS SUMMARY | 2024-07-30 10:40 | XMS_ITS | Data Portability ---
Author Organization [facility], [address] Address [address] [place] [address] Assessment No assessment recorded. Plan of Treatment Reminders Order Date Submit Date Provider Last Modified By Organization Details Last Modified Time Details Appointments None recorded. Lab urinalysis , dipstick 2023 024 [email or web address] [facility], [address] [place] [address], [phone], 19:58:54 culture, urine 2023 024 [facility], [address] [place] [address], [address], 4 06:08:00 Referral None recorded. Procedures None recorded. Surgeries None recorded. Imaging None recorded. Medication Orders Macrobid 100 mg capsule 2023 024 [id number], [phone] [place], [address], 4 19:59:23 Patient TargetsNo targets recorded. Patient Instructions Encounter Date Encounter Id Patient Instructions Last Modified By Organization Details Last Modified Time 10/08/2023 [id number] specimen collection & handling* [email or web address] Not available 10/08/2023 19:58:55 Reason for Referral None Reported. Results Created Date Observation Date Name Description Value Unit Range Abnormal Flag Note LastModifiedBy Organization Detail LastModifiedTime 10/08/19 24 10/11/2023 URINE CULTU RE, ROUTI NE urine culture, routine FINAL REPORT abnormal Not Available [facility] ([facility]) [address] [facility], [place], [address], 10/13/2023 06:08:00 10/08/19 24 10/11/2023 URINE CULTU RE, ROUTI NE result 1 ESCHER ICHIA COLI abnormal Great er than 100,0 00 colon y formi ng units per mL Cefaz carlos <=4 ug/mL Cefaz carlos with an GIRISH <=16 predi cts susce ptibi lity to the oral agent s cefac bren, cefdi jag, cefpo doxim e, cefpr ozil, cefur oxime , cepha lexin , and lorac arbef when used for thera py of uncom plica itzel urina ry tract infec tions due to E. coli, Klebs iella pneum oniae , and Prote us mirab ilis. Not Available [facility] ([facility]) [address] [facility], [place], [address], 10/13/2023 06:08:00 10/08/19 24 10/11/2023 URINE CULTU RE, ROUTI NE antimicrobia l susceptibili ty COMMEN T S = Susce ptibl e; I = Inter media te; R = Resis tant P = Posit mile; N = Negat mile MICS are expre ssed in micro grams per mL Antib iotic RSLT# 1 RSLT# 2 RSLT# 3 RSLT# 4 Amoxi cilli n/Cla vulan ic Acid S Ampic illin R Cefep stuart S Ceftr iaxon e S Cefur oxime S Cipro floxa ella S Ertap enem S Genta micin R Imipe nem S Levof loxac in S Merop enem S Nitro furan toin S Piper acill in/Ta zobac morales S Tetra cycli ne R Tobra mycin I Trime thopr im/Nelson lfa R Not Available [facility] ([facility]) [address] [facility], [place], [address], 10/13/2023 06:08:00 10/08/19 24 10/08/2023 urina lysis , dipst ick Unknown Analyte Normal = light yellow Not Available [address] [place], [address], 10/08/2023 19:31:02 10/08/19 24 10/08/2023 urina lysis , dipst ick Unknown Analyte Normal = clear Not Available [address] [place], [address], 10/08/2023 19:31:02 10/08/19 24 10/08/2023 urina lysis , dipst ick Unknown Analyte Normal = negati ve Not Available [address] [place], [address], 10/08/2023 19:31:02 10/08/19 24 10/08/2023 urina lysis , dipst ick Unknown Analyte Normal = Negati ve Not Available [address] [place], [address], 10/08/2023 19:31:02 10/08/19 24 10/08/2023 urina lysis , dipst ick Unknown Analyte Normal = Negati ve Not Available [address] [place], [address], 10/08/2023 19:31:02 10/08/19 24 10/08/2023 urina lysis , dipst ick Unknown Analyte Normal = 1.010, 1.015, 1.020 Not Available [address] [place], [address], 10/08/2023 19:31:02 10/08/19 24 10/08/2023 urina lysis , dipst ick Unknown Analyte Normal = Negati ve Not Available [address] [place], [address], 10/08/2023 19:31:02 10/08/19 24 10/08/2023 urina lysis , dipst ick Unknown Analyte Normal = 6.5, 7.0, 7.5, 8.0 Not Available [address] [place], [address], 10/08/2023 19:31:02 10/08/19 24 10/08/2023 urina lysis , dipst ick Unknown Analyte Normal = Negati ve Not Available [address] [place], [address], 10/08/2023 19:31:02 10/08/19 24 10/08/2023 urina lysis , dipst ick Unknown Analyte Normal = 0.2, 1.0 Not Available [facility] [address] [place], [address], 10/08/2023 19:31:02 10/08/19 24 10/08/2023 urina lysis , dipst ick Unknown Analyte Normal = Negati ve Not Available [facility] [address] [place], [address], 10/08/2023 19:31:02 10/08/19 24 10/08/2023 urina lysis , dipst ick Unknown Analyte Normal = Negati ve Not Available [address] [place], [address], 10/08/2023 19:31:02 10/08/19 24 10/08/2023 urina lysis , dipst ick Unknown Analyte Dark Yellow Not Available [facility] [address] [place], [address], 10/08/2023 19:31:02 10/08/19 24 10/08/2023 urina lysis , dipst ick Unknown Analyte Clear Not Available [address] [place] [address] [address] [place], [address], 10/08/2023 19:31:02 10/08/19 24 10/08/2023 urina lysis , dipst ick Unknown Analyte Negati ve Not Available [facility] [address] [place], [address], 10/08/2023 19:31:02 10/08/19 24 10/08/2023 urina lysis , dipst ick Unknown Analyte Negati ve Not Available [facility] [address] [place], [address], 10/08/2023 19:31:02 10/08/19 24 10/08/2023 urina lysis , dipst ick Unknown Analyte Trace Not Available [address] [place] [address] [address] [place], [address], 10/08/2023 19:31:02 10/08/19 24 10/08/2023 urina lysis , dipst ick Unknown Analyte 1.025 Not Available [facility] [address] [place], [address], 10/08/2023 19:31:02 10/08/19 24 10/08/2023 urina lysis , dipst ick Unknown Analyte Large Not Available [address] [place] [address] [address] [place], [address], 10/08/2023 19:31:02 10/08/19 24 10/08/2023 urina lysis , dipst ick Unknown Analyte 5.5 Not Available [facility] [address] [place], [address], 10/08/2023 19:31:02 10/08/19 24 10/08/2023 urina lysis , dipst ick Unknown Analyte 100 mg/dL Not Available [facility] [address] [place], [address], 10/08/2023 19:31:02 10/08/19 24 10/08/2023 urina lysis , dipst ick Unknown Analyte 0.2 E.U./d L Not Available [address] [place], [address], 10/08/2023 19:31:02 10/08/19 24 10/08/2023 urina lysis , dipst ick Unknown Analyte Negati ve Not Available [address] [place], [address], 10/08/2023 19:31:02 10/08/19 24 10/08/2023 urina lysis , dipst ick Unknown Analyte Small Not Available [address] [facility] [address] [place], [address], 10/08/2023 19:31:02 10/08/19 24 10/08/2023 speci men colle ction & handl ing* Completed? Succes sfully Not Available [address] [place], [address], 10/08/2023 19:40:10 Result Notes None recorded. Problems Name Problem SNOMED Code Status Onset Date Resolution Date Notes Provider Name and Address Organization Details Recorded Time Acute urinary tract infection 327276809 Active 024 Alexander Bynum NP [address] [place], [place], [address] , [place] - [facility] 19:39:59 Problem Notes None recorded. Medical Equipment None Reported. Allergies Allergen ID Allergen Name Allergen Category Reaction Reaction Severity Criticality Documentation Date Start Date Code Code System Note Provider Name and Address Organization Details Recorded Time 830070 shellfish derived food,medi cation anaphylax is Not available Not available 10/08/2023 [id number] UNK Thelma lr, [place] - [facility] 4 19:27:00 Medications Name Sig Start Date Stop Date Status Note LastModified by Organization Details LastModified Time Macrobid 100 mg capsule Take 1 capsule every 12 hours by oral route with meal(s) for 7 days, for UTI. 024 active Not Available Not Available Not Avai lable loratadine active Not Available Not Av ailable Not Available gabapentin active Not Available Not Av ailable Not Available Vitals Date Recorded Body height Body weight Oxygen saturation Oxygen saturation in Arterial blood by Pulse oximetry Heart rate Respiratory rate Body temperature Systolic blood pressure Diastolic blood pressure Provider Name and Address Organization Details Last Updated DateTime 4 172.72 cm 580754. 13 g 100 % 100 % 83 /min 18 /min 98.8 [degF] 92 mm[Hg] 63 mm[Hg] Thelma LOCO - [facility] 4 19:26:15 Social History Question Answer Notes LastModified by Organizat ion Details LastModified Time Tobacco Smoking Status Never Smoker BERONICA Peterson [facility] 10/08/2023 19:30:21 What Is Your Level Of Alcohol Consumption? None Information not available 10/08/2023 Have You Had A Flu Shot This Season? No Information not available 10/08/2023 If No, Would You Like A Flu Shot Today? No [email or web address] Information not available 10/08/2023 Have You Had Direct Contact, Or Contact During Intimacy, With Monkeypox Rash, Scabs, Or Body Fluids From A Person With Monkeypox? No Information not available 10/08/2023 What Was The Date Of Your Most Recent Tobacco Screening? 10/08/2023 [email or web address] Information not available 10/08/2023 What Is Your Relationship Status? Unknown Information not available 10/08/2023 Do You Use Any Illicit Or Recreational Drugs? No [email or web address] Information not available 10/08/2023 Have You Recently Traveled Abroad? No [email or web address] Information not available 10/08/2023 Do You Or Have You Ever Used Any Other Forms Of Tobacco Or Nicotine? No [email or web address] Information not available 10/08/2023 Sex: Unknown Functional Status None recorded. Mental Status None recorded. Family History Relationship Description Onset Age of this Age Resolved Age Notes LastModified by Organization Details LastModified Time Father No current problems or disability [email or web address] Not available 19:28:13 Mother No current problems or disability Not available 19:28:13 Medical History No medical history recorded. Gynecological HistoryNo gynecological history recorded. Obstetrics History GPAL:G 0 P 0 0 0 0 Past Encounters Encounter ID Performer Location Encounter Start Date Encounter Closed Date Diagnosis/Indication Diagnosis SNOMED-CT Code Diagnosis ICD10 Code Diagnosis Note [id number] [facility] [address] [place] [address] 11/07/2021 15:11:43 11/07/2021 16:04:05 [id number] [facility] [address] [place] [address] 07/22/2019 17:19:35 07/22/2019 18:05:08 [id number] [place] [facility] [address] [address] [place] [address] 10/08/2023 18:52:39 10/08/2023 20:09:31 Acute urinary tract infection 096013899 N39.0 We recommend you get a repeat urinalysis in 2 weeks to ensure that any abnormalit ies have resolved. If urine abnormalit ies persist, you will likely need further testing or treatment. We will contact you within 3 to 5 days with the results of your lab test. If you have not heard back from us within that time frame, please feel free to contact our office regarding your results. Go to the Emergency Department immediatel y if your symptoms worsen or if you develop new symptoms that concern you. Drink plenty of fluids You should follow-up with your PCP in 4-5 days, or at any time if your condition does not improve or worsens. Any acute change should prompt a visit to the nearest Emergency Department . Health Concerns Section Related Observation LastModified by Organization Detai ls LastModified Time None Recorded Concern Status LastModified by Organization Details LastModified Time None Recorded Advance Directives Directive None Recorded Payers Encounter Date Sequence Insurance Name Policy Number Policy Servin Covered Member ID Servin Member ID Guarantor Name 07/22/[address] [facility] (MEDICAID HMO) [id number] Lisa Hutson [id number] Lisa Maysfobertha 11/07/[address] [facility] (MEDICAID HMO) [id number] Lisa Hutson [id number] Lisa Maysfobertha 10/08/[address] [facility] (MEDICAID HMO) [id number] Lisa Hutson [id number] Lisa Bonafobertha Notes Date Note Type Note Provider Name and Address Organization Details Recorded Time 4 text/html Urinary Complaint FemaleReported bypatient.source of patient informationInformation obtained from patient; Patient arrived at Urgent Care ambulatory UTI Symptoms:no blood in the urine; no vaginal discharge; no urgency; no pain in the flank; no fever/chills; no incontinence; no recurrent UTI; no known exposure to STD;pain during urination;urinary frequency Severity:moderate Duration:3 days Modifying Factors:nothing gives reliefNotes:frequency and urgency x 3 day. denies any fever or fever with chills, denies any History of renal stone or bladder issues. Alexander Bynum NP [address] [place], [address], [place] - [facility] 10/10/2023 19:01:38 OBGyn Episode No OBEpisode recorded.
== END 2024-07-30 10:08 | disposition home or self-care (01) ==
LOC: HO.HBS 09:47
PROVIDERS: PCP Internal Medicine; Visit Provider Physician Assistant Surgical
DX: E66.9 Obesity, unspecified (principal); Z98.84 Bariatric surgery status
CPT/HCPCS: 99214; G2211

== ENCOUNTER 2024-10-30 09:01 | Outpatient (AMB) | payer MEDICARE, MEDICAID, SELFPAY ==
--- NOTE | 2024-10-30 09:38 | MHC.NURWM ---
Intake Intake Visit Reasons: OV PO LSG 01/24/18 Allergies SEAFOOD Allergy (Intermediate, Uncoded 01/25/23 12:08) HIVES,THROAT SWELLING seafood Allergy (Unknown, Uncoded 01/25/23 12:08) itching Coding
--- OUTSIDE RECORDS SUMMARY | 2024-10-30 09:41 | XMS_ITS | Data Portability ---
Author Organization BERONICA Smith s, [address] Address [address] [place] [address] Assessment No assessment recorded. Plan of Treatment Reminders Order Date Submit Date Provider Last Modified By Organization Details Last Modified Time Details Appointments None recorded. Lab urinalysis , dipstick 2023 024 [email or web address] [facility], [address] [place] [address], [phone], 19:58:54 culture, urine 2023 024 [place] [facility], [address] [place] [address], [id number], 4 06:08:00 Referral None recorded. Procedures None recorded. Surgeries None recorded. Imaging None recorded. Medication Orders Macrobid 100 mg capsule 2023 024 [place] [id number], [phone] [place], [address], 4 19:59:23 Patient TargetsNo targets recorded. Patient Instructions Encounter Date Encounter Id Patient Instructions Last Modified By Organization Details Last Modified Time 10/08/2023 [id number] specimen collection & handling* [email or web address] Not available 10/08/2023 19:58:55 Reason for Referral None Reported. Results Created Date Observation Date Name Description Value Unit Range Abnormal Flag Note LastModifiedBy Organization Detail LastModifiedTime 10/08/19 24 10/11/2023 URINE CULTU RE, ROUTI NE urine culture, routine FINAL REPORT abnormal Not Available [facility] ([facility]) [address] [facility], [place], [address], 10/13/2023 06:08:00 10/08/19 24 10/11/2023 URINE CULTU [...] Prote us mirab ilis. Not Available [facility] ([facility]) [address] [facility], [place], [address], 10/13/2023 06:08:00 10/08/19 24 10/11/2023 URINE CULTU [...] thopr im/Nelson lfa R Not Available [facility] ([facility]) [address] [facility], [place], [address], 10/13/2023 06:08:00 10/08/19 24 10/08/2023 urina lysis , dipst ick Unknown Analyte Normal = light yellow Not Available [address] [place], [address], 10/08/2023 19:31:02 10/08/19 24 10/08/2023 urina lysis , dipst ick Unknown Analyte Normal = clear Not Available [address] [place], [address], 10/08/2023 19:31:02 10/08/19 24 10/08/2023 urina lysis , dipst ick Unknown Analyte Normal = negati ve Not Available [address] [place], [address], 10/08/2023 19:31:02 10/08/19 24 10/08/2023 urina lysis , dipst ick Unknown Analyte Normal = Negati ve Not Available [address] [place], [address], 10/08/2023 19:31:02 10/08/19 24 10/08/2023 urina lysis , dipst ick Unknown Analyte Normal = Negati ve Not Available [address] [place], [address], 10/08/2023 19:31:02 10/08/19 24 10/08/2023 urina lysis , dipst ick Unknown Analyte Normal = 1.010, 1.015, 1.020 Not Available [address] [place], [address], 10/08/2023 19:31:02 10/08/19 24 10/08/2023 urina lysis , dipst ick Unknown Analyte Normal = Negati ve Not Available [address] [place], [address], 10/08/2023 19:31:02 10/08/19 24 10/08/2023 urina lysis , dipst ick Unknown Analyte Normal = 6.5, 7.0, 7.5, 8.0 Not Available [address] [place], [address], 10/08/2023 19:31:02 10/08/19 24 10/08/2023 urina lysis , dipst ick Unknown Analyte Normal = Negati ve Not Available [address] [place], [address], 10/08/2023 19:31:02 10/08/19 24 10/08/2023 urina lysis , dipst ick Unknown Analyte Normal = 0.2, 1.0 Not Available [facility] [address] [place], [address], 10/08/2023 19:31:02 10/08/19 24 10/08/2023 urina lysis , dipst ick Unknown Analyte Normal = Negati ve Not Available [facility] [address] [place], [address], 10/08/2023 19:31:02 10/08/19 24 10/08/2023 urina lysis , dipst ick Unknown Analyte Normal = Negati ve Not Available [address] [place], [address], 10/08/2023 19:31:02 10/08/19 24 10/08/2023 urina lysis , dipst ick Unknown Analyte Dark Yellow Not Available [facility] [address] [place], [address], 10/08/2023 19:31:02 10/08/19 24 10/08/2023 urina lysis , dipst ick Unknown Analyte Clear Not Available [id number] [place] [id number] [address] [place], [address], 10/08/2023 19:31:02 10/08/19 24 10/08/2023 urina lysis , dipst ick Unknown Analyte Negati ve Not Available [facility] [address] [place], [address], 10/08/2023 19:31:02 10/08/19 24 10/08/2023 urina lysis , dipst ick Unknown Analyte Negati ve Not Available [facility] [address] [place], [address], 10/08/2023 19:31:02 10/08/19 24 10/08/2023 urina lysis , dipst ick Unknown Analyte Trace Not Available [id number] [place] [id number] [address] [place], [address], 10/08/2023 19:31:02 10/08/19 24 10/08/2023 urina lysis , dipst ick Unknown Analyte 1.025 Not Available [facility] [address] [place], [address], 10/08/2023 19:31:02 10/08/19 24 10/08/2023 urina lysis , dipst ick Unknown Analyte Large Not Available [address] [place] [id number] [address] [place], [address], 10/08/2023 19:31:02 10/08/19 24 10/08/2023 urina lysis , dipst ick Unknown Analyte 5.5 Not Available [facility] [address] [place], [address], 10/08/2023 19:31:02 10/08/19 24 10/08/2023 urina lysis , dipst ick Unknown Analyte 100 mg/dL Not Available [facility] [address] [place], [address], 10/08/2023 19:31:02 10/08/19 24 10/08/2023 urina lysis , dipst ick Unknown Analyte 0.2 E.U./d L Not Available [address] [address] [place], [address], 10/08/2023 19:31:02 10/08/19 24 10/08/2023 urina lysis , dipst ick Unknown Analyte Negati ve Not Available [address] [place], [address], 10/08/2023 19:31:02 10/08/19 24 10/08/2023 urina lysis , dipst ick Unknown Analyte Small Not Available [address] [facility] [address] [place], [address], 10/08/2023 19:31:02 10/08/19 24 10/08/2023 speci men colle ction & handl ing* Completed? Succes sfully Not Available [address] [place], [address], 10/08/2023 19:40:10 Result Notes None recorded. Problems Name Problem SNOMED Code Status Onset Date Resolution Date Notes Provider Name and Address Organization Details Recorded Time Acute urinary tract infection 116391580 Active 024 Alexander Bynum NP [address] [place], [place], [address] , [place] - [facility] 19:39:59 Problem Notes None recorded. Medical Equipment None Reported. Allergies Allergen ID Allergen Name Allergen Category Reaction Reaction Severity Criticality Documentation Date Start Date Code Code System Note Provider Name and Address Organization Details Recorded Time 956761 shellfish derived food,medi cation anaphylax is Not available Not available 10/08/2023 [id number] UNK Thelma lr, [place] - [facility] [...] Details Last Updated DateTime 4 172.72 cm 632442. 13 g 100 % 100 % 83 /min 18 /min 98.8 [degF] 92 mm[Hg] 63 mm[Hg] Thelma LOCO - [facility] 4 19:26:15 Social History Question Answer Notes LastModified by Organizat ion Details LastModified Time Tobacco Smoking Status Never Smoker BERONICA Peterson [facility] 10/08/2023 19:30:21 Have You Had A Flu Shot This Season? No [email or web address] Information not available 10/08/2023 If No, Would You Like A Flu Shot Today? No [email or web address] Information not available 10/08/2023 Have You Had Direct Contact, Or Contact During Intimacy, With Monkeypox Rash, Scabs, Or Body Fluids From A Person With Monkeypox? No [email or web address] Information not available 10/08/2023 What Was The Date Of Your Most Recent Tobacco Screening? 10/08/2023 [email or web address] Information not available 10/08/2023 What Is Your Relationship Status? Unknown [email or web address] Information not available 10/08/2023 Have You Recently Traveled Abroad? No [email or web address] Information not available 10/08/2023 Sex: Unknown Functional Status Question Answer Note LastModified by Organizat ion Details LastModified Time Do you use any illicit or recreational drugs? No [email or web address] Information not available 10/08/2023 Do you or have you ever used any other forms of tobacco or nicotine? No [email or web address] Information not available 10/08/2023 What is your level of alcohol consumption? None [email or web address] Information not available 10/08/2023 Mental Status None recorded. Family History Relationship Description Onset Age of this Age Resolved Age Notes LastModified by Organization Details LastModified Time Father No current problems or disability [email or web address] Not available 19:28:13 Mother No current problems or disability [email or web address] Not available 19:28:13 Medical History No medical history recorded. Gynecological HistoryNo gynecological history recorded. Obstetrics History GPAL:G 0 P 0 0 0 0 Past Encounters Encounter ID Performer Location Encounter Start Date Encounter Closed Date Diagnosis/Indication Diagnosis SNOMED-CT Code Diagnosis ICD10 Code Diagnosis Note [id number] [address] [place] [address] 11/07/2021 15:11:43 11/07/2021 16:04:05 [id number] [address] [facility] [address] [place] [address] 07/22/2019 17:19:35 07/22/2019 18:05:08 [id number] Alexander Bynum, [employer] WORK[employer] [address] [place] [address] 10/08/2023 18:52:39 10/08/2023 20:09:31 Acute urinary tract infection 635681068 N39.0 We recommend you get a repeat [...] Recorded Advance Directives Directive None Recorded Payers Insurance Date Sequence Insurance Name Policy Number Policy Servin Covered Member ID Servin Member ID Guarantor Name 10/08/2023 1 [facility] (MEDICAID HMO) [id number] Lisa Kellerbertha Haresh [id number] Lisa Curt Notes Date Note Type Note Provider Name [...] NP [address] [place], [address], [place] - [facility] 10/10/2023 19:01:38 OBGyn Episode No OBEpisode recorded.
--- NOTE | 2024-10-30 09:52 | MHC.OFFVISWM ---
VS Expanded 10/30/24 09:56 BP 133/61 Blood Pressure Location Rt brachial Blood Pressure Position Sitting Pulse 71 Pulse Source Pulse Oximeter Temp 97.6 F Temperature Source Temporal Artery Scan Pulse Oximetry 99 Oxygen Delivery Method Room Air Height 5 ft 8 in Weight 250 lb BMI 38.0 Body Fat % 42.8 Body Fat Mass 107.0 Fat Free Mass 142.8 Visceral Fat Rating 12.0 Body Water % 40.7 Body Water Mass 101.6 Muscle Mass/Score 135.6 Basal Metabolic Rate/Score 1,987 Intake Visit Reasons: OV PO LSG 01/24/18 Allergies SEAFOOD Allergy (Intermediate, Uncoded 01/25/23 12:08) HIVES,THROAT SWELLING seafood Allergy (Unknown, Uncoded 01/25/23 12:08) itching Medication List - Last Reconciled 10/30/24 by BERONICA Jimenez albuterol sulfate 2.5 mg inhalation Q8H PRN calcium carbonate 200 mg PO BID calcium carbonate-vitamin D3 500 mg-10 mcg (400 unit) (Calcium 500 + D) 1 tab PO BID cholecalciferol (vitamin D3) 125 mcg PO DAILY clotrimazole 1% 1 appl topical BID fexofenadine (An Allergy) 60 mg PO BID gabapentin 400 mg PO 2 times a day; inulin 2 grams PO DAILY loratadine 10 mg PO DAILY multivitamin with iron-mineral 1 tab PO DAILY ondansetron 4 mg PO Q8H PRN pantoprazole 40 mg PO DAILY pantoprazole 40 mg PO DAILY vitamin A 1 cap PO DAILY HPI Comments Details: This is a 53 yo female who is s/p LSG 01/24/2018. Weight at last visit on 03/07/2024 was 242 pounds with a BMI of 36.8, weight today is 250lbs with BMI 38. No complaints of nausea, emesis, abdominal pain or reflux, or constipation. Struggling with weight loss. Frustrated by weight gain. Present meal plan includes: 2 shakes per day, Fairlife or Premier 9am and 6pm 1 panamanian yogurt 1pm 1 meal 4f/4f 4pm -given at last visit Exercise routine includes: one day per week walking. has a gym membership as well which has a pool. she enjoys swimming limited by knee pain, also reports arthritis in hands/swelling [facility] Medical History Arthritis Asthma Bursitis Carpal tunnel syndrome IBS (irritable bowel syndrome) Liver problem Malabsorption due to intolerance, not elsewhere classified Morbid obesity Morbid obesity with BMI of 40.0-44.9, adult Obesity (BMI 30.0-34.9) Seasonal allergies Surgical History H/O tubal ligation History of adjustable gastric banding S/P laparoscopic sleeve gastrectomy Family History Father No problems noted. Mother Leukemia Son No problems noted. Daughter No problems noted. Daughter No problems noted. Sister No problems noted. Social History Alcohol intake: never Patient Tobacco Use Status: Never used Tobacco Physical Exam Vital Signs: Last Vital Signs Temp 97.6 F 10/30/24 09:56 Pulse 71 10/30/24 09:56 BP 133/61 10/30/24 09:56 Pulse Ox 99 10/30/24 09:56 Oxygen Delivery Method Room Air 10/30/24 09:56 BMI result Body Mass Index 38.0 Assessment & Plan Assessment & Plan (1) Obesity (BMI 35.0-39.9 without comorbidity): Code(s): E66.9 - Obesity, unspecified Category: Medical (2) S/P laparoscopic sleeve gastrectomy: Comment: 01/24/18 Code(s): Z98.84 - Bariatric surgery status Category: Medical (3) Excess skin: Code(s): L98.7 - Excessive and redundant skin and subcutaneous tissue Category: Medical Plan Will try to send Rx for Zepbound again through pt's Medicare insurance. Discussed importance of good nutrition plan if approved for this med; sent shenzhoufu dorian download info. Pt will communicate with me via text between visits. Clotrimazole ointment refilled per pt request. RTC 3mo. Medications: New Zepbound (tirzepatide (weight loss)) for 4 weeks 2.5 mg (0.5 mL) subcut QWEEK 2 mL 0RF NS Refilled clotrimazole 1% 1 appl topical BID 45 grams 3RF Discontinued pantoprazole Discontinued Reason: Duplicate 40 mg PO DAILY 30 tabs 3RF
[2024-10-30 09:56] VITALS: BP 133/61; PULSE 71; TEMP 36.4; O2SAT 99; BMI 38.0
== END 2024-10-30 10:38 | disposition home or self-care (01) ==
LOC: HO.HBS 09:02
PROVIDERS: PCP Internal Medicine; Visit Provider Physician Assistant Surgical
DX: E66.9 Obesity, unspecified (principal); Z68.38 Body mass index [BMI] 38.0-38.9, adult; Z98.84 Bariatric surgery status; L98.7 Excessive and redundant skin and subcutaneous tissue
CPT/HCPCS: 99214; G2211

== ENCOUNTER → 2024-10-30 09:01 | Outpatient (BNVA) | payer MEDICARE, MEDICAID, SELFPAY | PROVIDERS: PCP Internal Medicine; Visit Provider Physician Assistant Surgical | DX: E66.9 Obesity, unspecified (principal); L98.7 Excessive and redundant skin and subcutaneous tissue; Z98.84 Bariatric surgery status; Z68.38 Body mass index [BMI] 38.0-38.9, adult | CPT/HCPCS: 99212 ==

== ENCOUNTER 2025-05-01 11:26 | Outpatient (AMB) | payer MEDICARE, MEDICAID, SELFPAY ==
--- NOTE | 2025-05-01 11:30 | A.OFFVIS_ITS ---
VS Expanded 05/01/25 11:35 Height 5 ft 8 in Weight 250 lb BMI 38.0 Intake Visit Reasons: TV PO LSG 01/24/18 Allergies SEAFOOD Allergy (Intermediate, Uncoded 01/25/23 12:08) HIVES,THROAT SWELLING seafood Allergy (Unknown, Uncoded 01/25/23 12:08) itching Medication List - Last Reconciled 05/01/25 by BERONICA Jimenez albuterol sulfate 2.5 mg inhalation Q8H PRN calcium carbonate 200 mg PO BID calcium carbonate-vitamin D3 500 mg-10 mcg (400 unit) (Calcium 500 + D) 1 tab PO BID cholecalciferol (vitamin D3) 125 mcg PO DAILY clotrimazole 1% 1 appl topical BID fexofenadine (An Allergy) 60 mg PO BID gabapentin 400 mg PO 2 times a day; inulin 2 grams PO DAILY loratadine 10 mg PO DAILY multivitamin with iron-mineral 1 tab PO DAILY ondansetron 4 mg PO Q8H PRN pantoprazole 40 mg PO DAILY phentermine 15 mg PO DAILY vitamin A 1 cap PO DAILY HPI Comments Details: This is a 54 yo female who is s/p LSG 01/24/2018. Weight at last visit on 10/30/2024 was 250 pounds; weight today is 250lbs with BMI 38. No complaints of nausea, emesis, abdominal pain or reflux, or constipation. Last week had surgery and is in a lot of pain today. Had a [employer] procedure. She reports she ended up self-paying for Zepbound. However she developed anemia and reports she was told to stop the Zepbound by PCP. She reports that she is changing insurances to [employer]. Present meal plan includes: 2 shakes per day, Fairlife or Premier 9am and 6pm 1 hungarian yogurt 1pm 1 meal 4f/4f 4pm -given at last visit Exercise routine includes: one day per week walking. has a gym membership as well which has a pool. she enjoys swimming limited by knee pain, also reports arthritis in hands/swelling [facility] Medical History Arthritis Asthma Bursitis Carpal tunnel syndrome IBS (irritable bowel syndrome) Liver problem Malabsorption due to intolerance, not elsewhere classified Morbid obesity Morbid obesity with BMI of 40.0-44.9, adult Obesity (BMI 30.0-34.9) Seasonal allergies Surgical History H/O tubal ligation History of adjustable gastric banding S/P laparoscopic sleeve gastrectomy Family History Father No problems noted. Mother Leukemia Son No problems noted. Daughter No problems noted. Daughter No problems noted. Sister No problems noted. Social History Alcohol intake: never Patient Tobacco Use Status: Never used Tobacco Telehealth Telehealth Telehealth Platform: Telephone Location of provider rendering services: practice address Location of patient: address on file Patient Identification confirmed using: Name, : Yes Telehealth method: voice only Patient verbally consented to treatment: Yes Patient verbally consented to billing insurance company: Yes Patient informed of any privacy concerns related to visit: Yes Minutes spent on Phone/Video with Pt.: 15 Assessment & Plan Assessment & Plan (1) S/P laparoscopic sleeve gastrectomy: Comment: 01/24/18 Code(s): Z98.84 - Bariatric surgery status Category: Surgical (2) Obesity (BMI 35.0-39.9 without comorbidity): Code(s): E66.9 - Obesity, unspecified Category: Medical Plan Pt is interested in starting phentermine. She may still be interested in GLP1s as well but not a candidate yet. She will get a home BP cuff and check BP every day prior to taking phentermine. She will send me BP measurements daily. RTC 3mo TV. Medications: New phentermine must administer 2 hours after breakfast 15 mg PO DAILY 30 caps 0RF Discontinued Zepbound (tirzepatide (weight loss)) for 4 weeks Discontinued Reason: Doctor's Order 2.5 mg (0.5 mL) subcut QWEEK 2 mL 0RF NS
[2025-05-01 11:35] VITALS: BMI 38.0
== END 2025-05-01 11:47 | disposition home or self-care (01) ==
LOC: HO.HBS 11:26
PROVIDERS: PCP Internal Medicine; Visit Provider Physician Assistant Surgical
DX: E66.812 Obesity, class 2 (principal); Z68.38 Body mass index [BMI] 38.0-38.9, adult; Z90.3 Acquired absence of stomach [part of]; Z98.84 Bariatric surgery status
CPT/HCPCS: 99214; G2211